=== PATIENT | female | born 1960 | race Caucasian/White ===

== ENCOUNTER → 2017-09-26 | Emergency (ER) | payer MEDICARE, MEDICAID ==
[~2017-09-26] VITALS: Ht 170.2 cm; Wt 69.0 kg
[~2017-09-26] MED LIST: ACET-2119 PO; ACET-3068 PO; ALBU18HF2 INH; BUPR-94 PO; FURO-150 PO; HYDR-569 PO; HYDROcodone/acetaminophen 10/325mg tab PO ONE; ONDA8TAB9 PO; POTA20TA10 PO; ibuprofen 200mg tablet PO ONE; ondansetron 4mg rapidly disintigrating tab PO ONE
[2017-09-26 14:57] VITALS: BP 113/68
== END | disposition home or self-care (01) ==
LOC: ER 14:57
DX: S52.121A Displaced fracture of head of right radius, initial encounter for closed fracture (principal); M25.421 Effusion, right elbow; Z88.5 Allergy status to narcotic agent; Z91.013 Allergy to seafood; W01.0XXA Fall on same level from slipping, tripping and stumbling without subsequent striking against object, initial encounter; Y93.89 Activity, other specified; Y92.480 Sidewalk as the place of occurrence of the external cause; Y99.8 Other external cause status
CPT/HCPCS: 29105; 73080; 99284; A4565; A6449

== ENCOUNTER 2017-10-04 10:46 | Outpatient (CLI) | payer MEDICARE, MEDICAID ==
[~2017-10-04 10:46] MED LIST changes: -HYDROcodone/acetaminophen 10/325mg tab PO ONE; -ibuprofen 200mg tablet PO ONE; -ondansetron 4mg rapidly disintigrating tab PO ONE
[2017-10-04 11:00] VITALS: BP 97/68
== END 2017-10-04 11:50 | disposition home or self-care (01) ==
LOC: ORTHO 10:46
PROVIDERS: ATTEND Nurse Practitioner Family
DX: S52.124A Nondisplaced fracture of head of right radius, initial encounter for closed fracture (principal); M06.9 Rheumatoid arthritis, unspecified; D64.9 Anemia, unspecified; E03.9 Hypothyroidism, unspecified; M19.90 Unspecified osteoarthritis, unspecified site; Z91.013 Allergy to seafood; Z88.6 Allergy status to analgesic agent; X58.XXXA Exposure to other specified factors, initial encounter; Y93.89 Activity, other specified; Y92.89 Other specified places as the place of occurrence of the external cause; Y99.8 Other external cause status
CPT/HCPCS: 29105

== ENCOUNTER 2017-10-18 10:19 | Outpatient (CLI) | payer MEDICARE, MEDICAID ==
[2017-10-18 10:21] VITALS: BP 90/71
== END 2017-10-18 10:54 | disposition home or self-care (01) ==
LOC: ORTHO 10:19
PROVIDERS: ATTEND Nurse Practitioner Family
DX: S52.124A Nondisplaced fracture of head of right radius, initial encounter for closed fracture (principal); M06.9 Rheumatoid arthritis, unspecified; F17.210 Nicotine dependence, cigarettes, uncomplicated; Z88.8 Allergy status to other drugs, medicaments and biological substances; X58.XXXA Exposure to other specified factors, initial encounter; Y93.89 Activity, other specified; Y92.89 Other specified places as the place of occurrence of the external cause; Y99.8 Other external cause status
CPT/HCPCS: 29125; 73080; A6449

== ENCOUNTER 2017-10-29 09:15 | Outpatient (CLI) | payer MEDICARE, MEDICAID | END 2017-10-29 23:59 | disposition home or self-care (01) | LOC: LAB 09:15 | PROVIDERS: ATTEND Family Medicine | DX: E03.9 Hypothyroidism, unspecified (principal); J45.909 Unspecified asthma, uncomplicated; F17.200 Nicotine dependence, unspecified, uncomplicated | CPT/HCPCS: 36415; 84443 ==

== ENCOUNTER 2017-11-08 09:40 | Outpatient (CLI) | payer MEDICARE, MEDICAID ==
[2017-11-08 09:53] VITALS: BP 101/73
== END 2017-11-08 10:15 | disposition home or self-care (01) ==
LOC: ORTHO 09:40
PROVIDERS: ATTEND Nurse Practitioner Family
DX: S52.124D Nondisplaced fracture of head of right radius, subsequent encounter for closed fracture with routine healing (principal); M25.421 Effusion, right elbow; M06.9 Rheumatoid arthritis, unspecified; Z88.5 Allergy status to narcotic agent; X58.XXXD Exposure to other specified factors, subsequent encounter
CPT/HCPCS: 73080

== ENCOUNTER 2018-10-09 10:33 | Outpatient (CLI) | payer MEDICARE, MEDICAID ==
[~2018-10-09 10:33] MED LIST changes: +HYDR-4383 PO; -HYDR-569 PO
== END 2018-10-09 23:59 | disposition home or self-care (01) ==
LOC: LAB 10:33
PROVIDERS: ATTEND Family Medicine
DX: E03.8 Other specified hypothyroidism (principal); E55.9 Vitamin D deficiency, unspecified; J45.909 Unspecified asthma, uncomplicated; F17.200 Nicotine dependence, unspecified, uncomplicated
CPT/HCPCS: 36415; 82306; 84443

== ENCOUNTER 2018-11-10 08:55 | Outpatient (CLI) | payer MEDICARE, MEDICAID ==
[2018-11-10 09:40] LABS: ALANINE AMINOTRANSFERASE 17 U/L (12-78); ALBUMIN 3.5 G/DL (3.4-5.0); ALKALINE PHOSPHATASE 78 IU/L (46-116); ASPARTATE AMINO TRANSFERASE 16 U/L (10-37); BILIRUBIN,DIRECT 0.1 MG/DL (0-0.3); BILIRUBIN,TOTAL 0.4 MG/DL (0.1-1.0); TOTAL PROTEIN 6.9 G/DL (6.4-8.2)
== END 2018-11-10 23:59 | disposition home or self-care (01) ==
LOC: LAB 08:55
PROVIDERS: ATTEND Family Medicine
DX: R53.83 Other fatigue (principal); J45.909 Unspecified asthma, uncomplicated; F17.200 Nicotine dependence, unspecified, uncomplicated
CPT/HCPCS: 36415; 80076

== ENCOUNTER 2019-12-26 09:19 | Emergency (ER) | payer MEDICARE, MEDICAID ==
[~2019-12-26] VITALS: Ht 172.7 cm; Wt 54.1 kg
[2019-12-26] MEDS ORDERED: tranexamic acid 100mg/ml inj. IV ONE (09:45)
[2019-12-26] MEDS ORDERED: normal saline 1000ml 1,000 ML IV ONE (09:45)
[2019-12-26] MEDS ORDERED: TRANEXAMIC ACID 1 GM IN NACL,ISO-OS 100 ML IV ONE (09:55)
[2019-12-26 10:10] LABS: BASOPHILS # (AUTO) 0.1 X10'3 (0-0.2); BASOPHILS % (AUTO) 0.9 % (0-1); EOSINOPHILS % (AUTO) 0.1 % (0-6); HEMATOCRIT 47.2 % (35.0-45.0); HEMOGLOBIN 15.2 g/dl (12.0-16.0); LYMPHOCYTES % (AUTO) 6.2 % (21-51); MEAN CORPUSCULAR HEMOGLOBIN 27.9 PG (27.0-31.0); MEAN CORPUSCULAR HGB CONC 32.2 g/dL (33.0-36.5); MEAN CORPUSCULAR VOLUME 86.7 FL (78-98); MONOCYTES # (AUTO) 0.8 X10'3 (0-0.9); MONOCYTES % (AUTO) 5.2 % (2-12); NEUTROPHILS # (AUTO) 13.6 X10'3 (1.8-7.7); NEUTROPHILS % (AUTO) 87.6 % (42-75); PLATELET COUNT 259 X10'3 (140-440); RED BLOOD COUNT 5.44 X10'6 (4.20-5.60); RED CELL DISTRIBUTION WIDTH 14.5 % (11.5-14.5); WHITE BLOOD COUNT 15.5 X10'3 (4.5-11.0)
[2019-12-26 10:26] LABS: ALANINE AMINOTRANSFERASE 16 U/L (12-78); ALBUMIN 4.1 G/DL (3.4-5.0); ALBUMIN/GLOBULIN RATIO 1.2 (1.1-1.5); ALKALINE PHOSPHATASE 88 IU/L (46-116); ANION GAP 12 (8-16); ASPARTATE AMINO TRANSFERASE 11 U/L (10-37); BILIRUBIN,TOTAL 0.6 MG/DL (0.1-1.0); BLOOD UREA NITROGEN 28 MG/DL (7-18); BUN/CREATININE RATIO 22.6 (6.6-38.0); CALCIUM 10.1 MG/DL (8.5-10.1); CHLORIDE 111 MMOL/L (99-107); CREATININE 1.24 MG/DL (0.40-0.90); GLUCOSE 198 MG/DL (70-104); POTASSIUM 3.9 MMOL/L (3.5-5.1); SODIUM 148 MMOL/L (135-145); TOTAL CARBON DIOXIDE 25.3 MMOL/L (24-32); TOTAL PROTEIN 7.5 G/DL (6.4-8.2); eGFR 44 ML/MIN
[2019-12-26 10:30] LABS: LIPASE 60 U/L (73-393); MAGNESIUM 2.3 MG/DL (1.5-2.4)
[2019-12-26 10:32] LABS: CLARITY,URINE CLEAR (Clear); COLOR,URINE YELLOW (Yellow); GLUCOSE, URINE NEGATIVE (Neg); KETONES,URINE TRACE mg/dl (Neg); LEUKOCYTE ESTERASE ,URINE NEGATIVE (Neg); NITRITES, URINE NEGATIVE (Neg); OCCULT BLOOD,URINE NEGATIVE (Neg); PH,URINE 5.5 (4.8-8.0); PROTEIN,URINE NEGATIVE (Neg); UROBILINOGEN,URINE 0.2 E.U/dL (0.2-1.0)
[2019-12-26 10:37] LABS: UA COLLECTION TYPE STRAIGHT CATH
[2019-12-26] MEDS ORDERED: ondansetron/PF 4mg/2ml inj IV ONE (11:05)
[2019-12-26] MEDS ORDERED: LOPE2TAB25 PO (11:05)
[2019-12-26] MEDS ORDERED: ONDA8TAB6 PO (11:11)
[2019-12-26] MEDS ORDERED: HYDR-3965 PO (11:11)
[2019-12-26 11:12] VITALS: BP 117/63
== END 2019-12-26 11:27 | disposition home or self-care (01) ==
LOC: ER 09:19
DX: K52.9 Noninfective gastroenteritis and colitis, unspecified (principal); K62.5 Hemorrhage of anus and rectum; Z88.5 Allergy status to narcotic agent; Z91.013 Allergy to seafood; Z79.899 Other long term (current) drug therapy
CPT/HCPCS: 36415; 74176; 80053; 81003; 83605; 83690; 83735; 84145; 84484; 85025; 85610; 96365; 96375; 99285; J2405; J7030; 93005

== ENCOUNTER 2020-01-10 11:45 | Emergency (ER) | payer MEDICARE, MEDICAID ==
[~2020-01-10] VITALS: Ht 170.2 cm; Wt 53.6 kg
[~2020-01-10 11:45] MED LIST changes: +HYDR-3965 PO; +LOPE2TAB25 PO; +ONDA8TAB6 PO
[2020-01-10 13:22] VITALS: BP 114/66
[2020-01-10] MEDS ORDERED: HYDROcodone/acetaminophen 5mg/325mg tablet PO ONE (14:00)
[2020-01-10] MEDS ORDERED: ondansetron 4mg rapidly disintigrating tab PO ONE (14:15)
[2020-01-11] MEDS ORDERED: HYDR-3965 PO (14:24)
== END 2020-01-10 14:30 | disposition home or self-care (01) ==
LOC: ER 11:46
DX: S92.411A Displaced fracture of proximal phalanx of right great toe, initial encounter for closed fracture (principal); Z88.5 Allergy status to narcotic agent; Z91.013 Allergy to seafood; Z79.899 Other long term (current) drug therapy; W01.0XXA Fall on same level from slipping, tripping and stumbling without subsequent striking against object, initial encounter; Y93.89 Activity, other specified; Y92.89 Other specified places as the place of occurrence of the external cause; Y99.8 Other external cause status
CPT/HCPCS: 73630; 99283

== ENCOUNTER 2020-07-11 15:40 | Emergency (ER) | payer MEDICARE, MEDICAID ==
[~2020-07-11] VITALS: Ht 167.6 cm; Wt 50.0 kg
[~2020-07-11 15:40] MED LIST changes: -HYDR-3965 PO
[2020-07-11 15:49] VITALS: BP 105/58
== END 2020-07-11 16:11 | disposition home or self-care (01) ==
LOC: ER 15:40
DX: S46.911A Strain of unspecified muscle, fascia and tendon at shoulder and upper arm level, right arm, initial encounter (principal); Z88.5 Allergy status to narcotic agent; Z88.8 Allergy status to other drugs, medicaments and biological substances; Z79.899 Other long term (current) drug therapy; W19.XXXA Unspecified fall, initial encounter; Y93.89 Activity, other specified; Y92.89 Other specified places as the place of occurrence of the external cause; Y99.8 Other external cause status
CPT/HCPCS: 29105; 99283

== ENCOUNTER 2020-08-06 10:09 | Emergency (ER) | payer MEDICARE, MEDICAID ==
[~2020-08-06] VITALS: Ht 172.7 cm; Wt 54.1 kg
[2020-08-06] MEDS ORDERED: METR-159 PO (10:41)
[2020-08-06] MEDS ORDERED: CIP750T PO (10:41)
[2020-08-06] MEDS ORDERED: ONDA4TAB6 PO (10:41)
[2020-08-06 11:48] VITALS: BP 97/69
== END 2020-08-06 11:50 | disposition home or self-care (01) ==
LOC: ER 10:10
DX: R05 Cough (principal); R50.9 Fever, unspecified; J18.9 Pneumonia, unspecified organism; Z87.81 Personal history of (healed) traumatic fracture; Z20.828 Contact with and (suspected) exposure to other viral communicable diseases
CPT/HCPCS: 36415; 87635; 99283

== ENCOUNTER 2025-01-08 09:31 | Emergency (ER) | payer MEDICARE, MEDICAID ==
[~2025-01-08] VITALS: Ht 172.7 cm; Wt 58.0 kg
[~2025-01-08 09:31] MED LIST changes: +ONDA4TAB6 PO; +POTA-197 PO; -POTA20TA10 PO
[2025-01-08] MEDS: ketorolac trometh 15mg/ml vial 15 MG/ML ML IM ONE (11:23)
[2025-01-08] MEDS ORDERED: CYCL-1 PO (11:36)
[2025-01-08 11:44] VITALS: BP 130/98; PULSE 89; RESP 16; TEMP 98.9; O2SAT 99
== END 2025-01-08 11:49 | disposition home or self-care (01) ==
LOC: ER 09:31
DX: S32.020A Wedge compression fracture of second lumbar vertebra, initial encounter for closed fracture (principal); M54.50 Low back pain, unspecified; Z88.5 Allergy status to narcotic agent; Z79.899 Other long term (current) drug therapy; Z91.013 Allergy to seafood; X58.XXXA Exposure to other specified factors, initial encounter; Y93.89 Activity, other specified; Y92.89 Other specified places as the place of occurrence of the external cause; Y99.8 Other external cause status
CPT/HCPCS: 72100; 99283